=== PATIENT | female | born 1935 | race Caucasian/White ===

== ENCOUNTER 2018-11-22 15:18 | Observation (INO) | payer OTHER ==
--- NOTE | 2018-11-22 15:52 | PDOC ---
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 Sudden onset chest pressure underneath R breast tissue 3pm today while sitting down watching TV. Associated SOB. Pain not associated w change in position or exertion. Pain partially relieved by NO given by EMS on way to ED. Denies past chest pain/ ACS. Denies fever, cough, nausea/vomiting, AB pain, urinary/bowel movement changes. Past History - Past Medical History Allergies/Adverse Reactions: Allergies Allergy/AdvReac Type Severity Reaction Status Date / Time No Known Allergies Allergy Verified 11/22/18 15:48 Home Medications: Ambulatory Orders Glimepiride [Amaryl] 4 mg PO DAILY 06/18/11 Levothyroxine [Synthroid -] 100 mcg PO DAILY 06/18/11 Fluoxetine HCl [Prozac -] 20 mg PO DAILY 11/28/11 Pioglitazone HCl/Metformin HCl [Actoplus Met 15 mg-500 mg Tab] 1 tab PO BID 12/29 Rosuvastatin Calcium [Crestor] 10 mg PO HS 11/28/11 Warfarin Na [Coumadin] 4 mg PO HS 11/28/11 Diltiazem Cd [Cardizem Cd -] 120 mg PO BID #0 cap.cd.24h 12/05/11 Metoprolol Tartrate [Lopressor -] 75 mg PO BID #0 tablet 12/05/11 Anemia: No Asthma: No Cancer: No Cardiac Disorders: No CVA: No COPD: No CHF: No Dementia: No Diabetes: Yes GI Disorders: No Disorders: No HTN: Yes Hypercholesterolemia: Yes Liver Disease: No Seizures: No Thyroid Disease: No - Surgical History Abdominal Surgery: No Appendectomy: No Cardiac Surgery: Yes (pacemaker) Cholecystectomy: No Lung Surgery: No Neurologic Surgery: No Orthopedic Surgery: No - Psycho Social/Smoking Cessation Hx Smoking Status: Yes Smoking History: Never smoked Have you smoked in the past 12 months: No Number of Cigarettes Smoked Daily: 0 If you are a former smoker, when did you quit?: 1979 Hx Alcohol Use: No Drug/Substance Use Hx: No Substance Use Type: None Hx Substance Use Treatment: No Cardiac Specific PMH - Complaint Specific PMHX Pacemaker: Yes Review of Systems - Review of Systems Constitutional: No: Chills, Fever HEENTM: No: Eye Pain, Nose Pain, Throat Pain, Mouth Pain Respiratory: Yes: Shortness of Breath. No: Cough Cardiac (ROS): Yes: Chest Pain. No: Palpitations, Syncope ABD/GI: No: Abdominal Distended, Constipated, Diarrhea, Nausea, Vomiting : No: Burning, Dysuria, Discharge, Frequency, Flank Pain, Hematuria Musculoskeletal: No: Back Pain, Joint Pain, Joint Swelling, Muscle Pain Integumentary: No: Bruising, Dryness, Erythema Neurological: No: Headache, Numbness, Seizure, Tingling, Tremors Psychiatric: No: Anxiety, Depression, Stressors Endocrine: No: Excessive Sweating, Flushing, Intolerance to Cold, Intolerance to Heat Hematologic/Lymphatic: No: Anemia, Blood Clots *Physical Exam - Vital Signs Last Vital Signs Temp Pulse Resp BP Pulse Ox 98.0 F 78 18 178/90 H 98 11/22/18 17:20 11/22/18 17:20 11/22/18 17:20 11/22/18 17:20 11/22/18 17:20 - Physical Exam General Appearance: Yes: Nourished, Appropriately Dressed, Mild Distress HEENT: positive: EOMI, RADHA, Normal Voice, Hearing Grossly Normal. negative: Nasal Congestion, Rhinorrhea Respiratory/Chest: positive: Chest Tender (under R breast), Lungs Clear, Labored Respiration, Rapid RR. negative: Crackles, Rales, Rhonchi, Stridor, Wheezing Cardiovascular: positive: Regular Rate, S1, S2, Irregular. negative: Edema, Murmur Gastrointestinal/Abdominal: positive: Normal Bowel Sounds, Flat, Soft. negative : Tender, Organomegaly Extremity: positive: Normal Capillary Refill. negative: Pedal Edema Integumentary: positive: Normal Color Neurologic: positive: docket specialist II-XII NML intact, Fully Oriented, Alert, Normal Response, Responsive. negative: Motor Strength 5/5 (4/5 deputy controller strength bilaterally), Facial Droop, Numbness, Sensory Deficit, Confused, Disoriented Heart Score/ECG Review - History History: Moderately suspicious - Electrocardiogram EKG: Non specific repolarization disturbance - Age Age: >/= 65 - Risk Factors Risk Factors Heart Score: Yes Hx Hypercholesterolemia, Yes Hx Hypertension, Yes Hx Diabetes, No Smoking History, No Hx Obesity Based on the list above the patient has:: >/=3 risk factors or Hx atherosclerotic disease - Troponin Troponin: </= normal limit - Score Heart Score - Total: 6 ED Treatment Course - LABORATORY CBC & Chemistry Diagram: 11/22/18 16:30 11/22/18 16:30 - ADDITIONAL ORDERS Additional order review: Laboratory Results 11/22/18 11/22/18 18:30 16:30 Sodium 138 Potassium 4.5 Chloride 104 Carbon Dioxide 20 L Anion Gap 14 BUN 11.3 Creatinine 0.8 Est GFR (CKD-EPI)AfAm 80.14 Est GFR (CKD-EPI)NonAf 69.14 Random Glucose 207 H Calcium 9.1 Total Bilirubin 0.6 AST 19 ALT 19 Alkaline Phosphatase 70 Creatine Kinase 97 Troponin I < 0.02 Total Protein 8.0 Albumin 4.3 Lipase 186 11/22/18 16:30 RBC 4.67 MCV 93.4 MCHC 33.4 RDW 13.9 Neutrophils % 75.9 Lymphocytes % 19.4 D Monocytes % 2.9 L Eosinophils % 0.6 D Basophils % 1.2 - RADIOLOGY Radiology Studies Ordered: Category Date Time Status CHEST X-RAY PORTABLE* [RAD] Stat Radiology 11/22/18 15:51 Taken - Medications Given in the ED: ED Medications Discontinued Medications Generic Name Dose Route Start Last Admin Trade Name Freq PRN Reason Stop Dose Admin Aspirin 162 mg 11/22/18 16:21 11/22/18 16:41 Asa - PO 11/22/18 16:22 162 mg ONCE ONE Administration Medical Decision Making - Medical Decision Making 11/22/18 15:52 CBC CMP trop EKG CXR Given 162 aspirin for chest pain - resolved EKG shows new T-wave inversions V2-5 compared to 2012, afib, HR 90, QTc 455 WBC 12, repeat BP 119/71, neg trop, normal CMP CXR shows clear lung davies w pacemaker Melissa Jiménez is a 82yF w PMHx DM, HTN, HLD, 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 EKG showed new T-wave inversions V2-5 compared to 2012 and afib, negative trop. Pain resolved after given aspirin and NO. No lung infection seen on CXR Admit to Dr Priest tele/obvs for chest pain - rule out [place] (6 HEART score, new T wave inversion) PCP Dr Zach Schumacher Discharge - Discharge Information Problems reviewed: Yes Clinical Impression/Diagnosis: Chest pain Qualifiers: Chest pain type: unspecified Qualified Code(s): R07.9 - Chest pain, unspecified Condition: Improved - Follow up/Referral Referrals: Zach Schumacher MD [Primary Care Provider] - - Patient Discharge Instructions - Post Discharge Activity
--- NOTE | 2018-11-22 16:08 | PDOC ---
Attending Attestation - Resident Resident Name: Rell Strickland - ED Attending Attestation I have performed the following: I have examined & evaluated the patient, The case was reviewed & discussed with the resident, I agree w/resident's findings & plan, Exceptions are as noted - HPI HPI: 11/22/18 16:09 82y F hx of DM, HTN, HL afib persents with R sided chest pressure that is associated with sob, the pain seems to beintermittent as pt was pain free upon arival but then started again. Pt denies any fever/chills, n/v, diaphoresis, cough, abd pain, back pain. No prior history of similar CP pmd: All Schumacher sole stainer - Physicial Exam PE: 11/22/18 16:21 On exam: GENERAL: The patient is awake, alert, Nontoxic - in no acute distress. HEAD: Normocephalic, atraumatic. EYES: extraocular movements intact, sclera anicteric, conjunctiva clear. ENT: Normal voice, Moist mucous membranes. NECK: Normal range of motion, supple LUNGS: Breath sounds equal, clear to auscultation bilaterally. No wheezes, no rhonchi, no rales. HEART: Regular rate and rhythm, normal S1 and S2 without murmur, rub or gallop. ABDOMEN: Soft, nontender, neg murphies, no rashes, No guarding, no rebound. No CVA tenderness EXTREMITIES: Normal range of motion, NEUROLOGICAL: No facial assymetry, Normal speech, movinga ll 4 extremities spontaneously and symmetrically - Medical Decision Making 11/22/18 16:21 pts ekg noted for new TWI on lateral leads will obtain new ekg pt notes she was cp free during hta taken pt with cp now - will give obtain repeat ekg pt writen for asa will obtain cxr to r/o acute pulm disease case signed out to evevning team to dispo
[2018-11-22] MEDS ORDERED: ASPIRIN 81 MG CHEWABLE TABLETS PO ONE (16:21)
[2018-11-22] MEDS ORDERED: ASPIRIN 81 MG CHEWABLE TABLETS ONE (16:39)
[2018-11-22 16:52] LABS: BASO % 1.2 % (0-2.0); EOS % 0.6 % (0-4.5); HEMATOCRIT 43.7 % (32.4-45.2); HEMOGLOBIN 14.6 GM/dL (10.7-15.3); LYMPH % 19.4 % (8-40); MCH 31.2 pg (25.7-33.7); MCHC 33.4 g/dl (32.0-36.0); MEAN CELL VOLUME 93.4 fl (80-96); MONO % 2.9 % (3.8-10.2); NEUT % 75.9 % (42.8-82.8); RBC 4.67 M/mm3 (3.60-5.2); RDW 13.9 % (11.6-15.6)
[2018-11-22 17:37] LABS: ALBUMIN 4.3 g/dl (3.4-5.0); BILIRUBIN,TOTAL 0.6 mg/dL (0.2-1); BLOOD UREA NITROGEN 11.3 mg/dL (7-18); CALCIUM 9.1 mg/dL (8.5-10.1); CREATININE 0.8 mg/dL (0.55-1.3); POTASSIUM 4.5 mmol/L (3.5-5.1)
[2018-11-23 04:26] VITALS: BMI 25.0
[2018-11-23] MEDS: ACETAMINOPHEN 325 MG TABLET (FP) PO PRN ×3 (04:40→18:34)
[2018-11-23] MEDS: INSULIN SLIDING SCALE (NOVOLOG) 1 VIAL SQ SCH ×4 (06:40→21:38)
[2018-11-23] MEDS: LEVOTHYROXINE NA 100 MCG TABLET (FP) PO SCH (06:41)
[2018-11-23] MEDS: GLIMEPIRIDE 4 MG TABLET (FP) PO SCH (06:42)
[2018-11-23 06:45] LABS: BASO % 0.6 % (0-2.0); EOS % 1.1 % (0-4.5); HEMATOCRIT 34.4 % (32.4-45.2); LYMPH % 23.5 % (8-40); MCH 32.3 pg (25.7-33.7); MCHC 34.9 g/dl (32.0-36.0); MEAN CELL VOLUME 92.4 fl (80-96); MEAN PLT VOLUME 9.9 fl (7.5-11.1); NEUT % 67.8 % (42.8-82.8); PLATELET COUNT 177 K/MM3 (134-434); RBC 3.72 M/mm3 (3.60-5.2); RDW 13.8 % (11.6-15.6); WHITE BLOOD COUNT 9.4 K/mm3 (4.0-10.0)
[2018-11-23 06:47] LABS: ALBUMIN 3.3 g/dl (3.4-5.0); BILIRUBIN,TOTAL 0.8 mg/dL (0.2-1); BLOOD UREA NITROGEN 10.2 mg/dL (7-18); CALCIUM 8.4 mg/dL (8.5-10.1); CREATININE 0.6 mg/dL (0.55-1.3); POTASSIUM 3.7 mmol/L (3.5-5.1); TOT PROT 6.2 g/dl (6.4-8.2)
--- NOTE | 2018-11-23 09:14 | CON.CARD ---
Consult Consult Specialty:: cardio - History of Present Illness Chief Complaint: cp History of Present Illness: 82y F here with chest pain. ER notes describe R sided chest pressure associated with sob. history obtained in italian from pt and at bedside. NEVER HAD ANY PAIN IN HER CHEST. she never felt any PAIN actually. rather a "sensation" that bothered her, like something moving, in RUQ of abdomen. no radiation. denies assctd SOB. states she was sweating at the time of that pain. never had any other episodes. denies cp or sob with ambulation, routine activity remote PPM, no cardio f/u. a week ago saw dr schilling in dr [facility] office first time initial ER bp 181/95 PMH: DM, HTN, HPL afib - Alcohol/Substance Use Hx Alcohol Use: No - Smoking History Smoking history: Never smoked Have you smoked in the past 12 months: No Aproximately how many cigarettes per day: 0 If you are a former smoker, when did you quit?: 1979 Home Medications - Allergies Allergies/Adverse Reactions: Allergies Allergy/AdvReac Type Severity Reaction Status Date / Time No Known Allergies Allergy Verified 11/22/18 15:48 - Home Medications Home Medications: Ambulatory Orders Glimepiride [Amaryl] 4 mg PO DAILY 06/18/11 Levothyroxine [Synthroid -] 100 mcg PO DAILY 06/18/11 Fluoxetine HCl [Prozac -] 20 mg PO DAILY 11/28/11 Pioglitazone HCl/Metformin HCl [Actoplus Met 15 mg-500 mg Tab] 1 tab PO BID 12/29 Rosuvastatin Calcium [Crestor] 10 mg PO HS 11/28/11 Warfarin Na [Coumadin] 4 mg PO HS 11/28/11 Diltiazem Cd [Cardizem Cd -] 120 mg PO BID #0 cap.cd.24h 12/05/11 Metoprolol Tartrate [Lopressor -] 75 mg PO BID #0 tablet 12/05/11 Review of Systems - Review of Systems Constitutional: denies: Chills, Fever Eyes: denies: Eye Pain HENT: denies: Nasal Congestion Neck: denies: Stiffness Cardiovascular: denies: Palpitations Respiratory: denies: Orthopnea, PND Gastrointestinal: denies: Diarrhea, Rectal Bleeding Genitourinary: denies: Burning, Hematuria Musculoskeletal: denies: Muscle Pain Integumentary: denies: Rash Neurological: denies: Numbness, Seizure, Syncope Endocrine: denies: Excessive Sweating Hematology/Lymphatic: denies: Excessive Bleeding Vital Signs: Vital Signs Temperature 98 F 11/23/18 04:01 Pulse Rate 67 11/23/18 04:01 Respiratory Rate 18 11/23/18 05:00 Blood Pressure 151/98 11/23/18 04:01 O2 Sat by Pulse Oximetry (%) 98 11/23/18 05:00 Constitutional: Yes: Well Nourished, No Distress Eyes: No: Sclera Icterus HENT: No: Nasal Congestion Neck: No: Decreased ROM Respiratory: Yes: CTA Bilaterally. No: Accessory Muscle Use, Rales, Wheezes Gastrointestinal: Yes: Normal Bowel Sounds. No: Distention, Hepatomegaly, Palpable Mass, Tenderness Cardiovascular: Yes: Regular Rate and Rhythm JVD: No Carotid Bruit: No PMI: Non-Displaced Heart Sounds: Yes: S1, S2. No: Gallop Murmur: No: Systolic Murmur, Diastolic Murmur Musculoskeletal: Yes: Other (No kyphosis) Extremities: No: Cool, Cyanosis Edema: No Peripheral Pulses: 2+ Left Carotid, 2+ Right Carotid, 2+ Left Doralis Pedis, 2+ Right Dorsalis Pedis Integumentary: No: Jaundice Neurological: Yes: Alert, Oriented (x3) Psychiatric: No: Agitated - Other Data Labs, Other Data: CBC, BMP 11/23/18 05:50 11/23/18 05:50 Troponin, BNP 11/22/18 11/22/18 11/23/18 16:30 18:30 02:32 Troponin I < 0.02 < 0.02 Troponin, BNP 11/22/18 11/22/18 11/23/18 16:30 18:30 02:32 Troponin I < 0.02 < 0.02 Assessment/Plan ECG #1: afib, diffuse nonsp ST-Ts--new vs 2012 prior ECG #2: no change vs #1 CXR: clear lungs/pleura. + PPM tele: AF mostly 80s-90s (rarely 120s-130s) localized abdominal pain (RUQ), abnormal ECG: -nonspecific sensation in RUQ, since resolved. nontender on exam. -nonspecific ECG abnormalities (though no recent ecg available for comparison). trop neg x 2. sx's not concerning for UA/ACS -f/u echo -will attempt to obtain baseline recent ECG from dr song/dr schilling office--if no changes here, then there is not indication for stress testing Afib: -HR overall is controlled. cont home diltiazem, metoprolol -cont home warfarin, dose per INR HTN: -bp initially elevated, now improved -cont home meds, observe bp trend HPL: -cont home rosuvastatin DM: -per PMD PPM: -outpt f/u dr schilling
[2018-11-23] MEDS ORDERED: METOPROLOL TARTRATE 25 MG TABLET (FP) ONE ×2 (09:15→21:06)
[2018-11-23] MEDS ORDERED: METOPROLOL TARTRATE 50 MG TABLET (FP) ONE ×2 (09:16→21:06)
[2018-11-23] MEDS: FLUoxetine HCL 20 MG CAPSULE (FP) PO SCH (09:17)
[2018-11-23] MEDS: METOPROLOL TARTRATE 50 MG, METOPROLOL TARTRATE 25 MG PO SCH ×2 (09:17→21:34)
[2018-11-23] MEDS ORDERED: HEPARIN NA (PORCINE) 5,000 UNITS/ML 1ML VIAL SQ SCH (10:00)
[2018-11-23] MEDS ORDERED: METOPROLOL TARTRATE 50 MG TABLET (FP) PO SCH (10:00)
--- NOTE | 2018-11-23 10:20 | EKG ---
Test Reason : Blood Pressure : / mmHG Vent. Rate : 072 BPM Atrial Rate : 277 BPM P-R Int : 000 ms QRS Dur : 092 ms QT Int : 366 ms P-R-T Axes : 000 029 267 degrees QTc Int : 400 ms ATRIAL FIBRILLATION ABNORMAL ECG WHEN COMPARED WITH ECG OF 22-NOV-2018 15:24, NO SIGNIFICANT CHANGE WAS FOUND Confirmed by LENNIE DALEY MD ([id number]) on 11/23/2018 10:20:29 AM Referred By: Confirmed By:LENNIE DALEY MD
--- NOTE | 2018-11-23 10:21 | EKG ---
Test Reason : Blood Pressure : / mmHG Vent. Rate : 090 BPM Atrial Rate : 258 BPM P-R Int : 000 ms QRS Dur : 084 ms QT Int : 372 ms P-R-T Axes : 000 016 253 degrees QTc Int : 455 ms ATRIAL FIBRILLATION ABNORMAL ECG WHEN COMPARED WITH ECG OF 28-NOV-2011 11:15, VENT. RATE HAS DECREASED BY 45 BPM T WAVE INVERSION NOW EVIDENT IN ANTEROLATERAL LEADS Confirmed by THUY RAY, LENNIE ([id number]) on 11/23/2018 10:21:08 AM Referred By: Confirmed By:LENNIE DALEY MD
[2018-11-23 11:18] LABS: INR 1.42 (0.83-1.09); PROTHROMBIN TIME (PATIENT) 16.8 SEC (9.7-13.0)
--- NOTE | 2018-11-23 13:42 | HP ---
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 Pt to the ER w/ Rt sided chest pain. The chest pressure was located underneath Rt breast tissue wc began today around 3pm while sitting down watching TV. The chest pain was accompanied w/ SOB. The chest pain was partially relieved by NTG given by EMS on way to ED. - Past Medical History DIRECTOR OF HOUSING: Yes: CVA Cardiovascular: Yes: AFIB, HTN, Hyperlipdemia Endocrine: Yes: Diabetes Mellitus - Smoking History Smoking history: Never smoked Have you smoked in the past 12 months: No Aproximately how many cigarettes per day: 0 If you are a former smoker, when did you quit?: 1979 - Alcohol/Substance Use Hx Alcohol Use: No Home Medications - Allergies Allergies/Adverse Reactions: Allergies Allergy/AdvReac Type Severity Reaction Status Date / Time No Known Allergies Allergy Verified 11/22/18 15:48 - Home Medications Home Medications: Ambulatory Orders Glimepiride [Amaryl] 4 mg PO DAILY 06/18/11 Levothyroxine [Synthroid -] 100 mcg PO DAILY 06/18/11 Fluoxetine HCl [Prozac -] 20 mg PO DAILY 11/28/11 Pioglitazone HCl/Metformin HCl [Actoplus Met 15 mg-500 mg Tab] 1 tab PO BID 12/29 Rosuvastatin Calcium [Crestor] 10 mg PO HS 11/28/11 Warfarin Na [Coumadin] 4 mg PO HS 11/28/11 Diltiazem Cd [Cardizem Cd -] 120 mg PO BID #0 cap.cd.24h 12/05/11 Metoprolol Tartrate [Lopressor -] 75 mg PO BID #0 tablet 12/05/11 Family Medical History Family History: Unremarkable Review of Systems - Review of Systems Constitutional: reports: No Symptoms Eyes: reports: No Symptoms HENT: reports: No Symptoms Neck: reports: No Symptoms Cardiovascular: reports: Chest Pain, Shortness of Breath Respiratory: reports: SOB Gastrointestinal: reports: No Symptoms Genitourinary: reports: No Symptoms Physical Examination Vital Signs: Vital Signs Temperature 98.6 F 11/23/18 09:57 Pulse Rate 124 H 11/23/18 09:57 Respiratory Rate 18 11/23/18 09:57 Blood Pressure 132/69 11/23/18 09:57 O2 Sat by Pulse Oximetry (%) 99 11/23/18 09:57 Constitutional: Yes: No Distress Eyes: Yes: WNL HENT: Yes: WNL Neck: Yes: WNL, Supple Cardiovascular: Yes: WNL, Regular Rate and Rhythm Respiratory: Yes: WNL, Regular, CTA Bilaterally Gastrointestinal: Yes: WNL, Normal Bowel Sounds, Soft Extremities: Yes: WNL Edema: No Labs: CBC, BMP 11/23/18 05:50 11/23/18 05:50 Problem List - Problems (1) Chest pain Assessment/Plan: As per cardio no new changes on EKG Probable stress testing as outpt DC planning for am Code(s): R07.9 - CHEST PAIN, UNSPECIFIED Qualifiers: Chest pain type: unspecified Qualified Code(s): R07.9 - Chest pain, unspecified (2) Afib Assessment/Plan: Heart rate controlled Pt's daughter states this evening that pt"s was changed from coumadin to xarelto at some point in october Therefore will dc coumadin and heparin wc were being bridged together Start xarelto in am Code(s): I48.91 - UNSPECIFIED ATRIAL FIBRILLATION (3) HTN (hypertension) Assessment/Plan: Cont meds Code(s): I10 - ESSENTIAL (PRIMARY) HYPERTENSION (4) HLD (hyperlipidemia) Code(s): E78.5 - HYPERLIPIDEMIA, UNSPECIFIED
[2018-11-23] MEDS ORDERED: HEPARIN NA (PORCINE) 5,000 UNITS/ML 1ML VIAL IVPUSH PRN ×2 (13:44)
[2018-11-23] MEDS ORDERED: HEPARIN SOD,PORK IN 0.45% NACL 25,000 UNIT/500 ML INFUS.BAG IVPB SCH (13:45)
--- NOTE | 2018-11-23 14:56 | ECHO ---
Name: GUOTAHIRA Exam:Adult Echocardiogram Study Date: 11/23/2018 11:21 AM Age: 82 yrs Reason For Study: Chest pain Height: 65 in Weight: 170 lb BSA: 1.8 m2 MMode/2D Measurements & Calculations IVSd: 0.94 cm Ao root diam: 3.2 cm LVIDd: 4.5 cm LA dimension: 3.5 cm LVIDs: 3.2 cm LVPWd: 0.92 cm EDV(Teich): 94.4 ml LVOT diam: 2.0 cm ESV(Teich): 41.9 ml LAV (MOD-bp): 79.0 ml Doppler Measurements & Calculations MV E max antonio: 76.5 cm/sec Ao V2 max: 92.3 cm/sec MV A max antonio: 22.2 cm/sec Ao max P.4 mmHg MV E/A: 3.4 Ao V2 mean: 75.3 cm/sec MV dec time: 0.16 sec Ao mean P.4 mmHg Ao V2 VTI: 20.7 cm MATI(I,D): 1.9 cm2 MATI(V,D): 2.1 cm2 LV V1 max P.6 mmHg MR max antonio: 263.0 cm/sec LV V1 mean P.91 mmHg MR max P.7 mmHg LV V1 max: 63.4 cm/sec LV V1 mean: 45.2 cm/sec LV V1 VTI: 12.7 cm SV(LVOT): 38.9 ml TR max antonio: 233.1 cm/sec TR max P.9 mmHg Med Peak E' Antonio: 7.9 cm/sec Med E/e': 9.7 Lat Peak E' Antonio: 7.6 cm/sec Lat E/e': 10.1 Procedure A complete two-dimensional transthoracic echocardiogram was performed (2D, M-mode, Doppler and color flow Doppler). Left Ventricle The left ventricle is normal in size. Left ventricular systolic function is normal. Ejection Fraction = 55- 60%. No regional wall motion abnormalities noted. Right Ventricle The right ventricle is normal size. The right ventricular systolic function is normal. Atria The left atrial size is normal. Right atrial size is normal. Mitral Valve There is mild mitral annular calcification. There is mild mitral regurgitation. Tricuspid Valve The tricuspid valve is normal in structure and function. There is moderate tricuspid regurgitation. P ulmonary artery systolic pressure is at least 37 mmHg is RA pressure is assumed 8 mmHg (dilated IVC). Aortic Valve The aortic valve is normal in structure and function. No aortic regurgitation is present. Pulmonic Valve The pulmonic valve is not well visualized. Great Vessels The aortic root is normal size. Aortic atheroma is seen in aortic root. Pericardium/Pleura There is no pericardial effusion. Interpretation Summary The left ventricle is normal in size. Left ventricular systolic function is normal. No regional wall motion abnormalities noted. Ejection Fraction = 55-60%. The right ventricular systolic function is normal. The left atrial size is normal. Right atrial size is normal. There is mild mitral annular calcification. There is mild mitral regurgitation. There is moderate tricuspid regurgitation. Pulmonary artery systolic pressure is at least 37 mmHg is RA pressure is assumed 8 mmHg (dilated IVC) Aortic atheroma is seen in aortic root There is no pericardial effusion. Previous study is not available for comparison Heriberto Guidry MD 11/23/2018 02:55 PM
[2018-11-23] MEDS ORDERED: WARFARIN NA 7.5 MG TABLET (FP) PO SCH (18:00)
[2018-11-23] MEDS ORDERED: ROSUVASTATIN CA 10 MG TABLET (FP) PO SCH (22:00)
[2018-11-23] MEDS ORDERED: WARFARIN NA PO SCH (22:00)
[2018-11-24] MEDS: INSULIN SLIDING SCALE (NOVOLOG) 1 VIAL SQ SCH ×2 (06:33→11:30)
[2018-11-24] MEDS: GLIMEPIRIDE 4 MG TABLET (FP) PO SCH (06:33)
[2018-11-24] MEDS: LEVOTHYROXINE NA 100 MCG TABLET (FP) PO SCH (06:33)
[2018-11-24 07:47] LABS: INR 1.43 (0.83-1.09); PROTHROMBIN TIME (PATIENT) 16.9 SEC (9.7-13.0)
[2018-11-24] MEDS ORDERED: METOPROLOL TARTRATE 25 MG TABLET (FP) ONE (08:14)
[2018-11-24] MEDS ORDERED: METOPROLOL TARTRATE 50 MG TABLET (FP) ONE (08:14)
[2018-11-24] MEDS: FLUoxetine HCL 20 MG CAPSULE (FP) PO SCH ×2 (08:47→09:35)
[2018-11-24] MEDS: METOPROLOL TARTRATE 50 MG, METOPROLOL TARTRATE 25 MG PO SCH ×2 (08:48→09:35)
--- NOTE | 2018-11-24 12:56 | PN ---
Progress Note (short form) - Note Progress Note: s: no chest pain, palps, dizziness, dyspnea Current Medications Acetaminophen (Tylenol -) 650 mg PO Q6H PRN PRN Reason: HEADACHE Last Admin: 11/23/18 18:34 Dose: 650 mg Diltiazem HCl (Cardizem Cd -) 120 mg PO BID [facility] Last Admin: 11/24/18 09:35 Dose: Not Given Fluoxetine HCl (Prozac -) 20 mg PO DAILY [facility] Last Admin: 11/24/18 09:35 Dose: Not Given Glimepiride (Amaryl -) 4 mg PO DAILY@0700 [facility] Last Admin: 11/24/18 06:33 Dose: 4 mg Insulin Aspart (Novolog Vial Sliding Scale -) 1 vial SQ [facility]; Protocol Last Admin: 11/24/18 11:30 Dose: 2 units Levothyroxine Sodium (Synthroid -) 100 mcg PO DAILY@0700 [facility] Last Admin: 11/24/18 06:33 Dose: 100 mcg Metoprolol Tartrate 50 mg/ (Metoprolol Tartrate 25 mg) 75 mg PO BID [facility] Last Admin: 11/24/18 09:35 Dose: Not Given Rivaroxaban (Xarelto) 20 mg PO DAILY@1800 [facility] Rosuvastatin Calcium (Crestor -) 10 mg PO HS [facility] Last Admin: 11/23/18 21:35 Dose: 10 mg Vital Signs Period Temp Pulse Resp BP Sys/Evans Pulse Ox Last 24 Hr 97.1 F-98.4 F 66-85 18-20 118-131/63-72 98-99 Constitutional: Yes: Well Nourished, No Distress Eyes: No: Sclera Icterus HENT: No: Nasal Congestion Neck: No: Decreased ROM Respiratory: Yes: CTA Bilaterally. No: Accessory Muscle Use, Rales, Wheezes Gastrointestinal: Yes: Normal Bowel Sounds. No: Distention, Hepatomegaly, Palpable Mass, Tenderness Cardiovascular: Yes: Regular Rate and Rhythm JVD: No Carotid Bruit: No PMI: Non-Displaced Heart Sounds: Yes: S1, S2. No: Gallop Murmur: No: Systolic Murmur, Diastolic Murmur Musculoskeletal: Yes: Other (No kyphosis) Extremities: No: Cool, Cyanosis Edema: No Peripheral Pulses: 2+ Left Carotid, 2+ Right Carotid, 2+ Left Doralis Pedis, 2+ Right Dorsalis Pedis Integumentary: No: Jaundice Neurological: Yes: Alert, Oriented (x3) Psychiatric: No: Agitated Assessment/Plan ECG #1: afib, diffuse nonsp ST-Ts--new vs 2012 prior ECG #2: no change vs #1 CXR: clear lungs/pleura. + PPM echo 11/2018 nl LV/RV, mild MR, mod TR, PASP at least 77 mmHg with aortic atheroma in aortic root tele: AF mostly 80s-90s (rarely 120s-130s) localized abdominal pain (RUQ), abnormal ECG: -nonspecific sensation in RUQ, since resolved. nontender on exam. -nonspecific ECG abnormalities (though no recent ecg available for comparison). trop neg x 2. sx's not concerning for UA/ACS -echo unremarkable - per Dr Hamilton - outpatient EKG reviewed, unchanged here. defer stress testing at this point Afib: -HR overall is controlled. cont home diltiazem, metoprolol -cont home warfarin, dose per INR HTN: -bp initially elevated, now improved -cont home meds, observe bp trend HPL: -cont home rosuvastatin DM: -per PMD PPM: -outpt f/u dr schilling
[2018-11-24 14:43] VITALS: BP 104/54; PULSE 68; TEMP 98.4
[2018-11-24] MEDS ORDERED: RIVAROXABAN 20 MG TABLET PO SCH (18:00)
[2018-11-25] MEDS ORDERED: DIGOXIN 0.125 MG TABLET (FP) PO SCH (10:00)
== END 2018-11-24 17:59 | disposition home or self-care (01) ==
LOC: JER 15:18 → JERBED 18:56 → UNDOADMOB 18:56 → INTOOBSV 11-23 01:40 → OBSVTOIN 11-23 01:40 → J4W 11-23 03:54 → JERBED 11-23 03:54 → J4W 11-23 09:24 → JERBED 11-23 09:24
PROVIDERS: ADMIT Internal Medicine; ATTEND Internal Medicine
PROC: 3E033GC Introduction of Other Therapeutic Substance into Peripheral Vein, Percutaneous Approach (ICD-10-PCS; principal; 2018-11-23)
PROC: 3E013GC Introduction of Other Therapeutic Substance into Subcutaneous Tissue, Percutaneous Approach (ICD-10-PCS; 2018-11-23)
DX: R07.89 Other chest pain (principal); I10 Essential (primary) hypertension; E78.5 Hyperlipidemia, unspecified; E11.9 Type 2 diabetes mellitus without complications; I69.398 Other sequelae of cerebral infarction; I48.91 Unspecified atrial fibrillation; R94.31 Abnormal electrocardiogram [ECG] [EKG]; Z95.0 Presence of cardiac pacemaker; Z79.01 Long term (current) use of anticoagulants; Z79.84 Long term (current) use of oral hypoglycemic drugs
CPT/HCPCS: 36415; 71045-TC-FY; 80053; 82550; 82962; 83690; 84484; 85025; 85610; 93005; 93010; 93306-TC; 96372; 96374; 99285-25; G0378; J1644

== ENCOUNTER 2022-01-24 13:19 | Inpatient (IN) | payer OTHER ==
[2022-01-24 13:47] VITALS: BMI 26.5
[2022-01-24] MEDS ORDERED: SODIUM CHLORIDE 1,000 ML IV STA (15:07)
[2022-01-24 15:48] LABS: VENOUS BASE EXCESS -2.2 mmol/L (-2-2); VENOUS O2 SATURATION 78.9 % (70-80); VENOUS PCO2 38.8 mmHg (38-52); VENOUS PH 7.382 (7.310-7.410)
[2022-01-24 15:51] LABS: BASO % 0.6 % (0-2.0); EOS % 2.4 % (0-4.5); HEMATOCRIT 36.9 % (32.4-45.2); HEMOGLOBIN 12.1 GM/dL (10.7-15.3); LYMPH % 24.5 % (8-40); MCH 27.8 pg (25.7-33.7); MCHC 32.7 g/dl (32.0-36.0); MEAN CELL VOLUME 84.9 fl (80-96); MEAN PLT VOLUME 11.4 fl (7.5-11.1); NEUT % 63.5 % (42.8-82.8); PLATELET COUNT 187 10^3/uL (134-434); RBC 4.34 M/mm3 (3.60-5.2); RDW 15.3 % (11.6-15.6); WHITE BLOOD COUNT 4.3 K/mm3 (4.0-10.0)
[2022-01-24 15:59] LABS: INR 1.36 (0.83-1.09); PROTHROMBIN TIME (PATIENT) 15.7 SEC (9.7-13.0)
[2022-01-24 16:02] LABS: ACTIVATED PTT 29.1 SECONDS (25.2-36.5)
[2022-01-24 16:18] LABS: ALBUMIN 3.2 g/dl (3.4-5.0); BLOOD UREA NITROGEN 17.3 mg/dL (7-18); CALCIUM 8.8 mg/dL (8.5-10.1)
[2022-01-24 16:21] LABS: CREATININE 1.1 mg/dL (0.55-1.3)
[2022-01-24 16:23] LABS: BILIRUBIN,TOTAL 0.4 mg/dL (0.2-1); TOT PROT 7.2 g/dl (6.4-8.2)
[2022-01-24 18:43] LABS: BLOOD UREA NITROGEN 14.4 mg/dL (7-18); CALCIUM 8.5 mg/dL (8.5-10.1)
[2022-01-24 18:46] LABS: CREATININE 0.7 mg/dL (0.55-1.3)
[2022-01-24] MEDS ORDERED: metFORMIN HCL 500 MG TABLET (FP) ONE (22:07)
[2022-01-24] MEDS: metFORMIN HCL 500 MG TABLET (FP) PO SCH (22:14)
[2022-01-24] MEDS: INSULIN SLIDING SCALE (NOVOLOG) 1 VIAL SQ SCH (22:38)
[2022-01-25 08:18] LABS: BASO % 0.3 % (0-2.0); EOS % 5.2 % (0-4.5); HEMATOCRIT 34.9 % (32.4-45.2); HEMOGLOBIN 11.6 GM/dL (10.7-15.3); LYMPH % 24.6 % (8-40); MCH 28.3 pg (25.7-33.7); MCHC 33.4 g/dl (32.0-36.0); MEAN CELL VOLUME 84.6 fl (80-96); MEAN PLT VOLUME 10.2 fl (7.5-11.1); MONO % 9.3 % (3.8-10.2); NEUT % 60.6 % (42.8-82.8); PLATELET COUNT 160 10^3/uL (134-434); RBC 4.12 M/mm3 (3.60-5.2); RDW 15.2 % (11.6-15.6); WHITE BLOOD COUNT 5.1 K/mm3 (4.0-10.0)
[2022-01-25 08:39] LABS: BLOOD UREA NITROGEN 12.2 mg/dL (7-18); CALCIUM 8.3 mg/dL (8.5-10.1)
[2022-01-25 08:43] LABS: BILIRUBIN,TOTAL 0.5 mg/dL (0.2-1); CREATININE 0.7 mg/dL (0.55-1.3); TOT PROT 6.5 g/dl (6.4-8.2)
[2022-01-25] MEDS: INSULIN SLIDING SCALE (NOVOLOG) 1 VIAL SQ SCH ×4 (09:35→21:11)
[2022-01-25] MEDS ORDERED: metFORMIN HCL 500 MG TABLET (FP) ONE ×2 (09:44→17:31)
[2022-01-25] MEDS ORDERED: LEVOTHYROXINE NA 50 MCG TABLET (FP) ONE (09:45)
[2022-01-25] MEDS ORDERED: DIGOXIN 0.125 MG TABLET ONE (09:45)
[2022-01-25] MEDS: metFORMIN HCL 500 MG TABLET (FP) PO SCH ×2 (09:53→20:35)
[2022-01-25] MEDS: DIGOXIN 0.125 MG TABLET PO SCH (09:53)
[2022-01-25] MEDS: LEVOTHYROXINE NA 50 MCG TABLET (FP) PO SCH (09:53)
[2022-01-25] MEDS: GLIMEPIRIDE 4 MG TABLET PO SCH ×2 (10:13→20:35)
[2022-01-25 15:37] LABS: EPI CELLS 22 /uL (0-25.1); HYALINE CASTS 15 /uL (0-3.1); PH,URINE 5.5 (5.0-8.0); URINE APPEARANCE CLOUDY; URINE BACTERIA >9,000 /uL (0-1359); URINE BILIRUBIN NEGATIVE (NEGATIVE); URINE COLOR YELLOW; URINE GLUCOSE (UA) 3+ (NEGATIVE); URINE KETONE TRACE (NEGATIVE); URINE LEUK ESTERASE NEGATIVE (NEGATIVE); URINE NITRITE NEGATIVE (NEGATIVE); URINE PROTEIN 2+ (NEGATIVE); URINE WBC 8 /uL (0-25.8)
[2022-01-25] MEDS ORDERED: FUROSEMIDE 40 MG/4 ML INJECTABLE VIAL ONE (17:46)
[2022-01-25 19:39] LABS: URINE RBC 17 /uL (0-23.9)
[2022-01-25] MEDS: RIVAROXABAN 20 MG TABLET PO SCH (20:35)
[2022-01-25] MEDS: ROSUVASTATIN CA 5 MG TABLET PO SCH (21:08)
[2022-01-26] MEDS: GLIMEPIRIDE 4 MG TABLET PO SCH ×2 (06:14→17:12)
[2022-01-26] MEDS: INSULIN SLIDING SCALE (NOVOLOG) 1 VIAL SQ SCH ×4 (06:14→21:26)
[2022-01-26] MEDS: metFORMIN HCL 500 MG TABLET (FP) PO SCH ×2 (06:14→17:08)
[2022-01-26] MEDS: LEVOTHYROXINE NA 50 MCG TABLET (FP) PO SCH (06:14)
[2022-01-26 07:46] LABS: BASO % 0.7 % (0-2.0); EOS % 4.7 % (0-4.5); HEMATOCRIT 37.4 % (32.4-45.2); HEMOGLOBIN 12.1 GM/dL (10.7-15.3); LYMPH % 31.7 % (8-40); MCH 27.4 pg (25.7-33.7); MCHC 32.4 g/dl (32.0-36.0); MEAN CELL VOLUME 84.6 fl (80-96); MEAN PLT VOLUME 10.5 fl (7.5-11.1); MONO % 10.6 % (3.8-10.2); NEUT % 52.3 % (42.8-82.8); PLATELET COUNT 183 10^3/uL (134-434); RBC 4.42 M/mm3 (3.60-5.2); WHITE BLOOD COUNT 6.1 K/mm3 (4.0-10.0)
[2022-01-26 08:13] LABS: BLOOD UREA NITROGEN 11.5 mg/dL (7-18); CREATININE 0.7 mg/dL (0.55-1.3)
[2022-01-26 08:14] LABS: ALBUMIN 3.2 g/dl (3.4-5.0); CALCIUM 8.9 mg/dL (8.5-10.1)
[2022-01-26 08:16] LABS: BILIRUBIN,TOTAL 0.8 mg/dL (0.2-1); TOT PROT 6.8 g/dl (6.4-8.2)
[2022-01-26] MEDS: DIGOXIN 0.125 MG TABLET PO SCH (09:57)
[2022-01-26] MEDS ORDERED: INSULIN (NOVOLOG) ASPART 100 UNITS/ML 10ML VIAL ONE (17:07)
[2022-01-26] MEDS: RIVAROXABAN 20 MG TABLET PO SCH (17:08)
[2022-01-26] MEDS: ROSUVASTATIN CA 5 MG TABLET PO SCH (21:26)
[2022-01-27 03:51] VITALS: RESP 18
[2022-01-27] MEDS: LEVOTHYROXINE NA 50 MCG TABLET (FP) PO SCH (06:44)
[2022-01-27] MEDS: metFORMIN HCL 500 MG TABLET (FP) PO SCH ×2 (06:44→16:55)
[2022-01-27] MEDS: INSULIN SLIDING SCALE (NOVOLOG) 1 VIAL SQ SCH ×3 (06:44→16:43)
[2022-01-27] MEDS: GLIMEPIRIDE 4 MG TABLET PO SCH ×2 (06:46→16:55)
[2022-01-27] MEDS: DIGOXIN 0.125 MG TABLET PO SCH (09:41)
[2022-01-27 14:23] VITALS: BP 105/64; PULSE 98; TEMP 98.3
== END 2022-01-27 17:27 | disposition home or self-care (01) | DRG 312 ==
LOC: JER 13:19 → JERBED 17:45 → OBSVTOIN 21:56 → J4W 01-25 19:53
PROVIDERS: ADMIT Internal Medicine; ATTEND Internal Medicine
DX: R55 Syncope and collapse (principal); R07.89 Other chest pain; I10 Essential (primary) hypertension; E78.5 Hyperlipidemia, unspecified; I48.91 Unspecified atrial fibrillation; E03.9 Hypothyroidism, unspecified; E11.43 Type 2 diabetes mellitus with diabetic autonomic (poly)neuropathy; Z86.73 Personal history of transient ischemic attack (TIA), and cerebral infarction without residual deficits
CPT/HCPCS: 0241U-QW; 36415; 70450-TC; 71045-TC-FY; 72125-TC; 73562-TC-RT-FY; 80048; 80053; 81003; 82010; 82803; 82962; 83036; 84443; 84484; 85025; 85610; 85730; 87086; 87186; 93005; 93010; 93306-TC; 93880-TC; 97116-GP; 99285-25; G0378

== ENCOUNTER 2023-03-06 13:31 | Inpatient (IN) | payer OTHER ==
[2023-03-06 14:01] VITALS: BMI 26.5
[2023-03-06 16:15] LABS: HEMATOCRIT 41.1 % (32.4-45.2); HEMOGLOBIN 13.9 GM/dL (10.7-15.3); MCH 31.3 pg (25.7-33.7); MCHC 33.8 g/dl (32.0-36.0); MEAN CELL VOLUME 92.5 fl (80-96); PLATELET COUNT 271 10^3/uL (134-434); RBC 4.45 M/mm3 (3.60-5.2); RDW 13.9 % (11.6-15.6); WHITE BLOOD COUNT 10.1 K/mm3 (4.0-10.0)
[2023-03-06 16:26] LABS: POTASSIUM 3.9 mmol/L (3.5-5.1)
[2023-03-06 16:28] LABS: BLOOD UREA NITROGEN 17.5 mg/dL (7-18); CALCIUM 9.4 mg/dL (8.5-10.1); MAGNESIUM 2.4 mg/dL (1.8-2.4)
[2023-03-06 16:29] LABS: ALBUMIN 3.4 g/dl (3.4-5.0)
[2023-03-06 16:31] LABS: PHOSPHOROUS 3.2 mg/dL (2.5-4.9)
[2023-03-06 16:33] LABS: BILIRUBIN,TOTAL 0.5 mg/dL (0.2-1); CREATININE 1.2 mg/dL (0.55-1.3); TOT PROT 7.6 g/dl (6.4-8.2)
[2023-03-06] MEDS ORDERED: SODIUM CHLORIDE 0.9% 500 ML INFUS.BAG IV ONE (16:37)
[2023-03-06 16:40] LABS: EPI CELLS >36 /uL (0-25.1); HYALINE CASTS 28 /uL (0-3.1); PH,URINE 5.5 (5.0-8.0); URINE APPEARANCE CLOUDY; URINE BACTERIA >9,000 /uL (0-1359); URINE BILIRUBIN NEGATIVE (NEGATIVE); URINE COLOR YELLOW; URINE GLUCOSE (UA) 3+ (NEGATIVE); URINE KETONE TRACE (NEGATIVE); URINE LEUK ESTERASE NEGATIVE (NEGATIVE); URINE NITRITE POSITIVE (NEGATIVE); URINE PROTEIN 3+ (NEGATIVE); URINE RBC 16 /uL (0-23.9); URINE WBC 30 /uL (0-25.8)
[2023-03-06] MEDS ORDERED: ALBUTEROL SO4 2.5/IPRATROPIUM 0.5 INH SOL 3 ML VIAL.NEB. NEB ONE (16:51)
[2023-03-06] MEDS ORDERED: methylPREDNISolone NA SUCC 125 MG/2 ML VIAL ONE (16:52)
[2023-03-06 16:56] LABS: BASO % 0.4 % (0-2.0); EOS % 0.4 % (0-4.5); HEMATOCRIT 39.7 % (32.4-45.2); HEMOGLOBIN 13.4 GM/dL (10.7-15.3); MCH 31.4 pg (25.7-33.7); MCHC 33.8 g/dl (32.0-36.0); MEAN CELL VOLUME 93.1 fl (80-96); NEUT % 71.2 % (42.8-82.8); PLATELET COUNT 265 10^3/uL (134-434); RBC 4.27 M/mm3 (3.60-5.2); RDW 13.6 % (11.6-15.6)
[2023-03-06 17:05] LABS: PROTHROMBIN TIME (PATIENT) 48.9 SEC (9.7-13.0)
[2023-03-06 17:07] LABS: ACTIVATED PTT 51.8 SECONDS (25.2-36.5)
[2023-03-06] MEDS ORDERED: CEFTRIAXONE 1,000 MG in DEXTROSE 5%-WATER - 50 ML IVPB ONE (17:22)
[2023-03-06 17:43] LABS: INR 4.28 (0.83-1.09)
[2023-03-06] MEDS ORDERED: CEFTRIAXONE 1 GM/50 ML BAG ONE (19:19)
[2023-03-07] MEDS: DEXTROSE 5%-0.45% SALINE 1,000 ML IV SCH ×2 (00:07→23:09)
[2023-03-07 06:48] LABS: BASO % 0.8 % (0-2.0); EOS % 1.9 % (0-4.5); HEMATOCRIT 40.3 % (32.4-45.2); HEMOGLOBIN 13.6 GM/dL (10.7-15.3); LYMPH % 35.7 % (8-40); MCH 31.5 pg (25.7-33.7); MCHC 33.9 g/dl (32.0-36.0); MEAN PLT VOLUME 9.6 fl (7.5-11.1); MONO % 8.9 % (3.8-10.2); NEUT % 52.7 % (42.8-82.8); PLATELET COUNT 258 10^3/uL (134-434); RBC 4.33 M/mm3 (3.60-5.2); RDW 13.7 % (11.6-15.6); WHITE BLOOD COUNT 8.2 K/mm3 (4.0-10.0)
[2023-03-07 06:55] LABS: POTASSIUM 3.5 mmol/L (3.5-5.1)
[2023-03-07 06:58] LABS: CALCIUM 8.6 mg/dL (8.5-10.1)
[2023-03-07 06:59] LABS: BLOOD UREA NITROGEN 15.8 mg/dL (7-18)
[2023-03-07 07:02] LABS: CREATININE 1.1 mg/dL (0.55-1.3)
[2023-03-07 07:04] LABS: BILIRUBIN,TOTAL 0.4 mg/dL (0.2-1); TOT PROT 6.6 g/dl (6.4-8.2)
[2023-03-07] MEDS: metFORMIN HCL 500 MG TABLET (FP) PO SCH ×2 (07:41→18:16)
[2023-03-07] MEDS: LEVOTHYROXINE NA 50 MCG TABLET (FP) PO SCH (07:41)
[2023-03-07] MEDS: GLIMEPIRIDE 4 MG TABLET PO SCH ×2 (07:41→18:15)
[2023-03-07] MEDS: INSULIN ASPART SLIDING SCALE (NOVOLOG) 1 VIAL SQ SCH ×4 (09:53→22:16)
[2023-03-07] MEDS ORDERED: CEFTRIAXONE 1 GM/50 ML BAG ONE (10:36)
[2023-03-07] MEDS: CEFTRIAXONE 1 GM in DEXTROSE 5%-WATER - 50 ML IVPB SCH (10:40)
[2023-03-07] MEDS: DIGOXIN 0.125 MG TABLET PO SCH (10:40)
[2023-03-07] MEDS: RIVAROXABAN 20 MG TABLET PO SCH (18:16)
[2023-03-07] MEDS: ROSUVASTATIN CA 5 MG TABLET PO SCH ×2 (23:07→23:53)
[2023-03-08] MEDS: LEVOTHYROXINE NA 50 MCG TABLET (FP) PO SCH (06:00)
[2023-03-08] MEDS: metFORMIN HCL 500 MG TABLET (FP) PO SCH ×2 (06:00→17:09)
[2023-03-08] MEDS: GLIMEPIRIDE 4 MG TABLET PO SCH ×2 (06:00→17:09)
[2023-03-08] MEDS: INSULIN ASPART SLIDING SCALE (NOVOLOG) 1 VIAL SQ SCH ×4 (06:01→21:51)
[2023-03-08] MEDS: CEFTRIAXONE 1 GM in DEXTROSE 5%-WATER - 50 ML IVPB SCH (09:27)
[2023-03-08] MEDS: DIGOXIN 0.125 MG TABLET PO SCH (09:27)
[2023-03-08] MEDS: RIVAROXABAN 20 MG TABLET PO SCH (17:09)
[2023-03-08] MEDS: DEXTROSE 5%-0.45% SALINE 1,000 ML IV SCH (21:44)
[2023-03-08] MEDS: ROSUVASTATIN CA 5 MG TABLET PO SCH (21:51)
[2023-03-09] MEDS: GLIMEPIRIDE 4 MG TABLET PO SCH ×2 (06:32→17:25)
[2023-03-09] MEDS: metFORMIN HCL 500 MG TABLET (FP) PO SCH ×2 (06:32→17:25)
[2023-03-09] MEDS: INSULIN ASPART SLIDING SCALE (NOVOLOG) 1 VIAL SQ SCH ×4 (06:33→21:26)
[2023-03-09] MEDS: LEVOTHYROXINE NA 50 MCG TABLET (FP) PO SCH (06:33)
[2023-03-09] MEDS: CEFTRIAXONE 1 GM in DEXTROSE 5%-WATER - 50 ML IVPB SCH (10:53)
[2023-03-09] MEDS: DIGOXIN 0.125 MG TABLET PO SCH (10:54)
[2023-03-09 14:18] VITALS: RESP 18
[2023-03-09] MEDS: RIVAROXABAN 20 MG TABLET PO SCH (17:25)
[2023-03-09] MEDS: ROSUVASTATIN CA 5 MG TABLET PO SCH (21:28)
[2023-03-10] MEDS: GLIMEPIRIDE 4 MG TABLET PO SCH (06:02)
[2023-03-10] MEDS: metFORMIN HCL 500 MG TABLET (FP) PO SCH (06:03)
[2023-03-10] MEDS: INSULIN ASPART SLIDING SCALE (NOVOLOG) 1 VIAL SQ SCH ×2 (06:03→12:25)
[2023-03-10] MEDS: LEVOTHYROXINE NA 50 MCG TABLET (FP) PO SCH (06:03)
[2023-03-10] MEDS: DIGOXIN 0.125 MG TABLET PO SCH (09:32)
[2023-03-10] MEDS ORDERED: CEPHALEXIN MONOHYDRATE 500 MG CAPSULE (UD) PO SCH (10:00)
[2023-03-10 14:16] VITALS: BP 98/55; PULSE 98; TEMP 97.9
== END 2023-03-10 15:50 | disposition home or self-care (01) | DRG 690 ==
LOC: JER 13:31 → JERBED 18:31 → OBSVTOIN 22:39 → J4S 03-07 15:14
PROVIDERS: ADMIT Internal Medicine; ATTEND Internal Medicine
DX: N39.0 Urinary tract infection, site not specified (principal); I69.351 Hemiplegia and hemiparesis following cerebral infarction affecting right dominant side; I10 Essential (primary) hypertension; I48.91 Unspecified atrial fibrillation; E11.9 Type 2 diabetes mellitus without complications; E78.5 Hyperlipidemia, unspecified; E03.9 Hypothyroidism, unspecified; F03.90 Unspecified dementia, unspecified severity, without behavioral disturbance, psychotic disturbance, mood disturbance, and anxiety; B96.20 Unspecified Escherichia coli [E. coli] as the cause of diseases classified elsewhere
CPT/HCPCS: 0241U-QW; 36415; 71045-TC-FY; 80053; 81003; 82962; 83036; 83735; 84100; 84443; 84484; 85025; 85027; 85610; 85730; 87086; 87186; 93005; 93010; 97116-GP; 99285-25; G0378

== ENCOUNTER 2023-08-06 08:27 | Observation (INO) | payer OTHER ==
[2023-08-06 09:31] VITALS: BMI 29.0
[2023-08-06] MEDS: ACETAMINOPHEN 1000 MG/100 ML BAG IVPB ONE (09:38)
[2023-08-06] MEDS ORDERED: ACETAMINOPHEN INJECTION 100 ML IVPB ONE (09:39)
[2023-08-06 09:45] LABS: BASO % 0.4 % (0-2.0); EOS % 1.6 % (0-4.5); HEMOGLOBIN 13.9 GM/dL (10.7-15.3); LYMPH % 28.6 % (8-40); MCH 32.2 pg (25.7-33.7); MCHC 33.9 g/dl (32.0-36.0); MEAN CELL VOLUME 94.9 fl (80-96); MEAN PLT VOLUME 9.2 fl (7.5-11.1); MONO % 6.9 % (3.8-10.2); NEUT % 62.5 % (42.8-82.8); PLATELET COUNT 189 10^3/uL (134-434); RBC 4.32 M/mm3 (3.60-5.2); RDW 13.7 % (11.6-15.6); WHITE BLOOD COUNT 6.9 K/mm3 (4.0-10.0)
[2023-08-06 09:53] LABS: INR 3.58 (0.83-1.09)
[2023-08-06 10:14] LABS: POTASSIUM 3.5 mmol/L (3.5-5.1)
[2023-08-06 10:16] LABS: ALBUMIN 4.2 g/dl (3.4-5.0); BLOOD UREA NITROGEN 12.4 mg/dL (7-18); CALCIUM 9.2 mg/dL (8.5-10.1)
[2023-08-06 10:19] LABS: CREATININE 0.7 mg/dL (0.55-1.3)
[2023-08-06 10:21] LABS: BILIRUBIN,TOTAL 0.9 mg/dL (0.2-1); TOT PROT 7.6 g/dl (6.4-8.2)
[2023-08-06 10:39] LABS: URIC ACID 1.9 mg/dL (2.6-7.2)
[2023-08-06] MEDS: oxyCODONE HCL 5 MG TABLET PO ONE (18:48)
[2023-08-06] MEDS: ROSUVASTATIN CA 5 MG TABLET PO SCH (21:22)
[2023-08-07] MEDS: LEVOTHYROXINE NA 50 MCG TABLET (FP) PO SCH (06:17)
[2023-08-07] MEDS: INSULIN ASPART SLIDING SCALE (NOVOLOG) 1 VIAL SQ SCH (06:17)
[2023-08-07] MEDS: metFORMIN HCL 500 MG TABLET (FP) PO SCH (06:17)
[2023-08-07] MEDS: GLIMEPIRIDE 4 MG TABLET PO SCH (06:17)
[2023-08-07] MEDS: ACETAMINOPHEN 1000 MG/100 ML BAG IVPB PRN (09:55)
[2023-08-07] MEDS: DIGOXIN 0.125 MG TABLET PO SCH (10:00)
[2023-08-07] MEDS: RIVAROXABAN 20 MG TABLET PO SCH (17:48)
[2023-08-10 07:04] VITALS: PULSE 71
[2023-08-10] MEDS: ACETAMINOPHEN 325 MG TABLET (FP) PO PRN (11:56)
[2023-08-10 14:09] VITALS: BP 140/87; RESP 20; TEMP 98.2
== END 2023-08-10 17:18 | disposition home health service (06) ==
LOC: JER 08:27 → UNDOADMOB 12:52 → JERBED 12:52 → J7W 17:03 → INTOOBSV 22:01 → OBSVTOIN 22:01 → JERBED 08-07 14:29 → J7W 08-07 14:29
PROVIDERS: ADMIT Internal Medicine; ATTEND Internal Medicine
PROC: 3E033NZ Introduction of Analgesics, Hypnotics, Sedatives into Peripheral Vein, Percutaneous Approach (ICD-10-PCS; principal; 2023-08-07)
PROC: 3E013VG Introduction of Insulin into Subcutaneous Tissue, Percutaneous Approach (ICD-10-PCS; 2023-08-07)
DX: M25.561 Pain in right knee (principal); M25.461 Effusion, right knee; I48.91 Unspecified atrial fibrillation; E78.5 Hyperlipidemia, unspecified; E11.9 Type 2 diabetes mellitus without complications; R26.2 Difficulty in walking, not elsewhere classified; E03.9 Hypothyroidism, unspecified
CPT/HCPCS: 36415; 73562-TC-RT-FY; 80053; 82962; 84550; 85025; 85610; 85651; 85730; 86140; 93005; 93010; 93970-TC; 96372; 96374; 96376; 97116-GP; 97161-GP; 99285-25; G0378; J0131